=== PATIENT | female | born 1955 | race Caucasian/White ===

== ENCOUNTER → 2020-05-30 | Outpatient (CLI) | payer MEDICARE ==
--- NOTE | 2020-05-30 13:53 | Diagnostic Imaging Report ---
Indication: Routine screening. Comparison is made with prior mammogram 12/17/2016 and 06/08/2013. 2-D and 3-D bilateral screening mammography was performed with CAD. Both breast are heterogeneously dense, limiting the sensitivity of mammography. The overall parenchymal pattern is stable. No mass or malignant appearing microcalcifications are seen. There are occasional benign calcifications. Axillae are unremarkable. IMPRESSION: BI-RADS Category 2 No mammographic features suspicious for malignancy are identified. ACR BI-RADS Category 2: Benign findings. Result letter will be mailed to the patient. Note: At least 10% of breast cancer is not imaged by mammography. Dictated by: Dictated on workstation # [id number]
== END ==
LOC: RAD 10:01
PROVIDERS: ATTEND Nurse Practitioner
DX: Z12.31 Encounter for screening mammogram for malignant neoplasm of breast (principal)
CPT/HCPCS: 77063; 77067

== ENCOUNTER → 2020-05-30 | Outpatient (CLI) | payer MEDICARE ==
[~2020-05-30] MED LIST: RT-ALBUTEROL SULF 2.5 MG/3 ML PRE-MIX VIAL INH ONE
== END ==
LOC: RT 09:59
PROVIDERS: ATTEND Nurse Practitioner Family
DX: Z13.83 Encounter for screening for respiratory disorder NEC (principal); F17.200 Nicotine dependence, unspecified, uncomplicated
CPT/HCPCS: 94060; 94726; 94729

== ENCOUNTER → 2020-07-09 | Outpatient (CLI) | payer MEDICARE ==
--- NOTE | 2020-07-09 16:49 | Diagnostic Imaging Report ---
EXAMINATION: CT Lung Screening. INDICATION: Current smoker with a 51 pack year history. TECHNIQUE: Noncontrast, low-dose CT imaging performed according to lung cancer screening protocol. Auto Exposure Controls were utilized during the CT exam to meet ALARA standards for radiation dose reduction. COMPARISON: None. FINDINGS: HEART/MEDIASTINUM: Heart size is normal. Scattered mild to moderately prominent coronary artery calcification. Thoracic aortic contour is unremarkable. There is mild wall calcification. No suggestion for pathologically enlarged mediastinal lymph nodes on limited, noncontrast imaging. Low-density nodularity of the left thyroid lobe measuring approximately 11 mm. Small hiatal hernia is present. LUNGS/MEASURED PULMONARY NODULES: No consolidating infiltrate. There are several areas of subpleural fibrosis. No concerning pulmonary mass. OTHER: Slightly accentuated thoracic kyphosis with degenerative changes. Endplate sclerosis and osteophyte formation. Small hiatal hernia. IMPRESSION: 1. No concerning pulmonary mass at baseline screening assessment. LUNG-RADS CATEGORY: 1 LUNG SCREENING MANAGEMENT/RECOMMENDATIONS: Continued annual screening with low dose CT in 12 months. Dictated by: Dictated on workstation # [id number]
== END ==
LOC: RAD 15:15
PROVIDERS: ATTEND Nurse Practitioner
DX: Z12.2 Encounter for screening for malignant neoplasm of respiratory organs (principal); F17.210 Nicotine dependence, cigarettes, uncomplicated
CPT/HCPCS: 71271

== ENCOUNTER → 2020-08-13 | Outpatient (CLI) | payer MEDICARE ==
[~2020-08-13] MED LIST changes: +REGADENOSON 0.4 MG/5 ML SYR (LEXISCAN) IV ONE; -RT-ALBUTEROL SULF 2.5 MG/3 ML PRE-MIX VIAL INH ONE
== END ==
LOC: CARD 10:30
PROVIDERS: ATTEND Internal Medicine Cardiovascular Disease
DX: I51.7 Cardiomegaly (principal); R94.31 Abnormal electrocardiogram [ECG] [EKG]
CPT/HCPCS: 93306

== ENCOUNTER → 2020-08-16 | Outpatient (CLI) | payer MEDICARE ==
[~2020-08-16] VITALS: Ht 162 cm; Wt 75.0 kg
[~2020-08-16] MED LIST changes: +CATHETER FLUSH 10 ML SYR IV PRN
[2020-08-16 09:09] VITALS: BP 176/92
--- NOTE | 2020-08-16 16:37 | Cardiology Stress Test Report ---
Stress Test Report Date of Procedure/Referring: PCP Phil Luther Jr, MD Admitting Physician [place] Indications: Abnormal ECG. Baseline Blood Pressure: Blood Pressure Systolic: 176 Blood Pressure Diastolic: 92 Vital Signs Date Time Temp Pulse Resp B/P (MAP) Pulse Ox O2 Delivery O2 Flow Rate FiO2 08/16/20 09:09 71 14 176/92 (120) 98 Room Air Baseline Vital Signs Vital Signs Date Time Temp Pulse Resp B/P (MAP) Pulse Ox O2 Delivery O2 Flow Rate FiO2 08/16/20 09:09 71 14 176/92 (120) 98 Room Air Baseline EKG: Baseline EKG: Sinus rhythm with first-degree AV block. Summary: After explaining the procedure and details to the patient, she signed the consent and was brought to the stress nuclear laboratory. STRESS TEST PROCEDURE:The patient was exercised for a total of 7 minutes and 46 seconds of the standard Paresh protocol achieving a maximum met level of 7.1.The resting heart rate was 73 bpm and the peak heart rate was 125 bpm, which represents 81% of the maximum predicted heart rate. The resting blood pressure was 155/95 mmHg and the peak blood pressure was 207/86 mmHg.This represents a normal heart rate and a hypertensive blood pressure response to exercise. The test was stopped due to dyspnea.There was no exercise-induced chest discomfort. There were no exercise-induced arrhythmias. There were positive exercise- induced electrocardiogram changes with approximately1 mm of [address] depression in the inferolateral leads that improved in recovery. The patient e xhibited good exercise capacity for age. NUCLEAR PROCEDURE:The patient was administered 10.87 mCi of intravenous technetium Myoview at rest for the rest imaging. The patient was subsequently administered 32 mCi of intravenous technetium Myoview at peak stress for the stress images.Following a short wait after each injection, imaging was obtained. The images were subsequently processed and reformatted in the usual views. Gated imaging was obtained. There was a mild degree of gastrointestinal and breast attenuation artifact noted. NUCLEAR RESULTS: There was normal myocardial perfusion in all segments without evidence of infarction or ischemia. There was normal left ventricular chamber size with an end-diastolic volume of 26 mL and an end-systolic volume of 6 mL. There was no evidence of transient ischemic dilatation. The TID ratio was 0.95. There was normal wall motion in all segments with a calculated ejection fraction of 77%. Conclusion: 1. Normal heart rate and a hypertensive blood pressure response to exercise. 2. There was no exercise-induced chest discomfort. 3. There were no exercise-induced arrhythmias. 4. There were positive exercise-induced electrocardiogram changes that resolved during recovery. 5. The patient exhibited good exercise capacity for age at 7 minutes and 46 seconds of the standard Paresh protocol. 6. There was normal myocardial perfusion in all segments without evidence of infarction or ischemia. 7. There was normal wall motion in all segments with a calculated ejection fraction of 77%. PHIL LUTHER JR, MD Aug 16, 2020 16:37
== END ==
LOC: CARD 08:30
PROVIDERS: ATTEND Internal Medicine Cardiovascular Disease
DX: R94.31 Abnormal electrocardiogram [ECG] [EKG] (principal)
CPT/HCPCS: 78452; 93017; A9502